=== PATIENT | female | born 1975 | race Hispanic/Latino ===

== ENCOUNTER 2017-08-22 03:37 | Emergency (ER) | payer BC | END 2017-08-22 04:04 | disposition home or self-care (01) | LOC: EDH 03:37 | DX: H65.01 Acute serous otitis media, right ear (principal); Z98.890 Other specified postprocedural states ==

== ENCOUNTER 2024-10-23 20:17 | Emergency (ER) | payer BC ==
[~2024-10-23] VITALS: Ht 162.6 cm; Wt 95.3 kg
[2024-10-23 21:03] LABS: BASOPHILS # (AUTO) 0.05 K/uL (0.00-0.20); BASOPHILS % (AUTO) 0.7 % (0.0-5.0); EOSINOPHILS # (AUTO) 0.18 K/uL (0.00-0.70); EOSINOPHILS % (AUTO) 2.6 % (0.0-8.0); HEMATOCRIT 39.4 % (36-48); IMMATURE GRANULOCYTE ABSOLUTE 0.02 K/uL (0-1); LYMPHOCYTES # (AUTO) 2.6 K/uL (1.0-4.8); LYMPHOCYTES % (AUTO) 37.5 % (21.0-51.0); MEAN CORPUSCULAR HEMOGLOBIN 24.6 pg (27.0-33.0); MEAN CORPUSCULAR HGB CONC 31.2 g/dL (32.0-36.0); MONOCYTES # (AUTO) 0.6 K/uL (0.1-1.0); MONOCYTES % (AUTO) 8.3 % (3.0-13.0); NEUTROPHILS # (AUTO) 3.5 K/uL (1.8-7.7); NEUTROPHILS % (AUTO) 50.6 % (40.0-77.0); PLATELET COUNT (AUTO) 120 K/uL (130-400); RED BLOOD CELL COUNT(AUTO) 4.99 MIL/uL (4.00-5.50); RED CELL DISTRIBUTION WIDTH 20.3 % (11.0-15.5)
[2024-10-23 21:11] LABS: CREATININE 0.9 mg/dL (0.5-1.0); POTASSIUM 3.7 mmol/L (3.5-5.1)
--- NOTE | 2024-10-23 21:24 | HMCIMG ---
CT HEAD/BRAIN W/O CONTRAST INDICATION: severe occipital headache/hypertensive urgency TECHNIQUE: CT HEAD/BRAIN W/O CONTRAST. CT was performed with one or more of the following dose reduction techniques: Automated exposure control, adjustment of the mA and/or kV according to the patient's size, or use of the iterative reconstruction technique. Comparison: None FINDINGS: The ventricles and extra ventricular CSF spaces are within normal limits. No mass effect, midline shift or herniation. No extra axial collection. No acute intracranial bleed. The visualized paranasal sinuses and mastoid air cells are normally aerated. IMPRESSION: No acute intracranial findings.
[2024-10-23 21:25] LABS: B-TYPE NATRIURETIC PEPTIDE 30 pg/mL (0-100)
--- NOTE | 2024-10-23 21:34 | HMCIMG ---
INDICATION: cp/htn TECHNIQUE: CHEST 1VW COMPARISON: None FINDINGS AND IMPRESSION: Prominent bilateral interstitial markings which may represent bronchitis or vascular congestion in the proper clinical setting. Borderline cardiomegaly Mild degenerative changes of the spine. The visualized upper abdomen appears unremarkable.
[2024-10-23 21:49] VITALS: BP 143/56; PULSE 55; RESP 16; TEMP 98.1; O2SAT 98
--- NOTE | 2024-10-23 21:49 | ERN ---
General Chief Complaint: Headache Stated Complaint: HYPERTENSION, HEADACHE Time Seen by MD: 20:21 Time Seen by Midlevel: 20:21 Source: patient History of Present Illness Initial Comments Patient is a 49-year-old female presenting to the emergency department for evaluation of an occipital headache. She proceeded to check her blood pressure and it was elevated at 170 systolic so she decided to report to the ER for further evaluation. She does report taking two 500 mg tablets earlier today with mild relief. Denies any vision changes, focal weakness, or any other symptoms at this time. Patient does not have a history of hypertension and has not taken any medication for it. Allergies: Coded Allergies: No Known Allergies (Unverified Allergy, Unknown, 10/23/24) Past Medical History Past Medical History: No Pertinent History Past Surgical History: None ROS Dictation CONSTITUTIONAL: Negative except for HPI HEAD/FACE: Negative except for HPI EENT: Negative except for HPI RESPIRATORY: Negative except for HPI GASTROINTESTINAL/ABDOMINAL: Negative except for HPI GENITOURINARY: Negative except for HPI MUSCULOSKELETAL: Negative except for HPI INTEGUMENTARY: Negative except for HPI NEUROLOGICAL/PSYCH: Negative except for HPI HEMATOLOGIC/LYMPHATIC: Negative except for HPI All Systems Negative, Except as noted above. 13 point review of systems assessed and all negative except for above. Physical Exam Physical Exam Dictation Vital Signs reviewed General Appearance: Alert, oriented x 3, no acute distress, well developed, nourished. Head and Face: non-traumatic. Eyes: PERRL, pink conjunctivas, eyelid no trauma, anterior chamber with arcus senilis. Ears: Pinnas intact and no signs of trauma or erythema ear canals clear and no discharge TM no erythema Nose: No discharge, no bleeding. Oropharynx: Mouth normal, tongue pink, pharynx clear,no erythema, tonsils no exudates, no abscesses noted, mucous membrane moist Neck: Supple, non-tender, no thyromegaly, no masses, no JVD, no bruits Breast:Deferred Chest:No tenderness, no crepitus, no paradoxical movement, no retractions Lungs:Clear, well-ventilated, symmetric, no rales, no wheezing, no rhonchi, no stridor, good breath sounds bilaterally Heart: Regular rate, regular rhythm, no murmur, no gallops Vascular: no peripheral edema, Abdomen: Soft, positive bowel sounds, nondistended, no guarding, nontender, no rebound, no masses no hepatomegaly, no splenomegaly, no Levy's sign, no hernias. Rectal: Deferred Genital: Deferred Neurological: Normal speech, motor function intact, sensory function intact Musculoskeletal: Neck nontender, full range of motion, back nontender, full range of motion, Extremities: nontender, full range of motion Skin: Color pink, dry, no turgor, no rash, no lacerations, no abrasions, no contusions. Lymphatic: Deferred Results Laboratory and Microbiology Lab and Micro Result Laboratory Tests Test 10/23/24 20:49 White Blood Count 7.0 K/uL (4.8-10.8) Red Blood Count 4.99 MIL/uL (4.00-5.50) Hemoglobin 12.3 g/dL (12.0-16.0) Hematocrit 39.4 % (36-48) Mean Corpuscular Volume 79.0 fL (79-99) Mean Corpuscular Hemoglobin 24.6 pg (27.0-33.0) L Mean Corpuscular Hemoglobin Concent 31.2 g/dL (32.0-36.0) L Red Cell Distribution Width 20.3 % (11.0-15.5) H Platelet Count 120 K/uL (130-400) L Mean Platelet Volume 10.3 fL (7.5-10.5) Immature Granulocyte % (Auto) 0.3 % (0-1) Neutrophils (%) (Auto) 50.6 % (40.0-77.0) Lymphocytes (%) (Auto) 37.5 % (21.0-51.0) Monocytes (%) (Auto) 8.3 % (3.0-13.0) Eosinophils (%) (Auto) 2.6 % (0.0-8.0) Basophils (%) (Auto) 0.7 % (0.0-5.0) Neutrophils # (Auto) 3.5 K/uL (1.8-7.7) Lymphocytes # (Auto) 2.6 K/uL (1.0-4.8) Monocytes # (Auto) 0.6 K/uL (0.1-1.0) Eosinophils # (Auto) 0.18 K/uL (0.00-0.70) Basophils # (Auto) 0.05 K/uL (0.00-0.20) Absolute Immature Granulocyte (auto 0.02 K/uL (0-1) Nucleated Red Blood Cells 0.0 % (0.0-0.19) Red Blood Cell Morphology See comments Sodium Level 141 mmol/L (136-145) Potassium Level 3.7 mmol/L (3.5-5.1) Chloride Level 105 mmol/L (101-111) Carbon Dioxide Level 31 mmol/L (21-32) Blood Urea Nitrogen 17 mg/dL (7-18) Creatinine 0.9 mg/dL (0.5-1.0) Glomerular Filtration Rate Calc 77 mL/min (>90) Random Glucose 122 mg/dL (70-105) H Total Calcium 9.4 mg/dL (8.5-10.1) Troponin I High Sensitivity 9 ng/L (4-50) B-Type Natriuretic Peptide 30 pg/mL (0-100) Labs Reviewed?: Yes MDM MDM: Patient is a 49-year-old female presenting to the emergency department for evaluation of an occipital headache. She proceeded to check her blood pressure and it was elevated at 170 systolic so she decided to report to the ER for further evaluation. She does report taking two 500 mg tablets earlier today with mild relief. Denies any vision changes, focal weakness, or any other symptoms at this time. Patient does not have a history of hypertension and has not taken any medication for it. On physical examination patient was in no acute distress. Neurological examination is unremarkable. Patient has a GCS of 15. Initial blood pressure is 180/76. Cardiac workup was initiated. Plan was to monitor blood pressure until administer clonidine as needed however during her ER stay her blood pressure improved to 160/61. Her CBC and chemistries unremarkable. Her cardiac enzymes are negative. Her EKG is normal. Her chest x-ray is normal. Her CT scan of the head is normal. Patient will be discharged home. She needs to follow up with her PCP so she could potentiallyStart blood pressure medication. Differential diagnosis: Hypertensive urgency, hypertensive emergency, electrolyte abnormality, intracranial bleed There are no social concerns with this patient. Prescription drug management Prescriptions will include: None Medical management and examination interpretation discussions were had by me with other qualified healthcare professionals as indicated for the patient's care. ED Course Orders Procedure Category Date Status Time 12 Lead Ekg Tracing- EKG 10/23/24 Logged Technical 20:39 Cbc With Differential LAB 4/14/25 Complete 20:39 Basic Metabolic Panel LAB 10/23/24 Complete 20:39 Troponin I High LAB 10/23/24 Complete Sensitivity 20:39 B-Type Natriuretic LAB 10/23/24 Complete Peptide 20:39 Chest 1vw RAD 10/23/24 Resulted 20:39 Ct Head/Brain W/O CT 10/23/24 Resulted Contrast 20:39 Vital Signs Date Time Temp Pulse Resp B/P (MAP) Pulse Ox O2 Delivery O2 Flow Rate FiO2 10/23/24 21:16 98.1 62 16 160/61 98 Room Air* 0 21 10/23/24 20:54 98.1 64 16 180/74 98 Room Air* 0 21 10/23/24 20:34 98.1 63 20 180/76 98 Room Air [place] [address] [address] IMAGING REPORT Signed PATIENT: BERNARDO ORTA MR#: [id number] : 1975 SEX: F AGE: 49 LOCATION: [facility] ORDER 39 STATUS: REG REPORT#: [id number] SERVICE 38 REASON: severe occipital headache/hypertensive urgency ORDERING PHYSICIAN: CATARINA ORTA PROCEDURE: HEAD WO - CT HEAD/BRAIN W/O CONTRAST CT HEAD/BRAIN W/O CONTRAST INDICATION: severe occipital headache/hypertensive urgency TECHNIQUE: CT HEAD/BRAIN W/O CONTRAST. CT was performed with one or more of the following dose reduction techniques: Automated exposure control, adjustment of the mA and/or kV according to the patient's size, or use of the iterative reconstruction technique. Comparison: None FINDINGS: The ventricles and extra ventricular CSF spaces are within normal limits. No mass effect, midline shift or herniation. No extra axial collection. No acute intracranial bleed. The visualized paranasal sinuses and mastoid air cells are normally aerated. IMPRESSION: No acute intracranial findings. DICTATED BY: JACK SHERMAN MD DATE: 10/23/242120 ELECTRONICALLY SIGNED BY: JACK SHERMAN MD DATE: 10/23/242123 [place] [address] [address] IMAGING REPORT Signed PATIENT: BERNARDO ORTA MR#: [id number] : 1975 SEX: F AGE: 49 LOCATION: [facility] ORDER 39 STATUS: REG [facility] REPORT#: [id number] SERVICE 38 REASON: cp/htn ORDERING PHYSICIAN: CATARINA ORTA PROCEDURE: CXR1VW - CHEST 1VW INDICATION: cp/htn TECHNIQUE: CHEST 1VW COMPARISON: None FINDINGS AND IMPRESSION: Prominent bilateral interstitial markings which may represent bronchitis or vascular congestion in the proper clinical setting. Borderline cardiomegaly Mild degenerative changes of the spine. The visualized upper abdomen appears unremarkable. DICTATED BY: JACK SHERMAN MD DATE: 10/23/242129 ELECTRONICALLY SIGNED BY: JACK SHERMAN MD DATE: 10/23/242133 HEART Score Response (Comments) Value History: Low suspicion (0) 0 EKG: Normal 0 Age: 45-65yrs (+1) 1 Risk Factors: No known risk factors (0) 0 Initial Troponin: Normal limit (0) 0 HEART Score Risk: Low Risk for MACE (1-3) Total 1 DX & DISP Disposition: Discharge Departure Impression: Primary Impression: Elevated blood pressure reading Condition: Stable Additional Instructions: Your blood work today is unremarkable. Your cardiac enzymes are negative. Your EKG is normal. Your CT scan of the head is normal. Your chest x-ray does not show any acute abnormalities. You will need to follow up with your primary care doctor outpatient. Continue to monitor your blood pressure over the next couple of days. Keep a log of your blood pressure readings. Your primary care doctor may need to start you on blood pressure medication. This will need to be done outpatient. Your last blood pressure while in the emergency department improved to 143/56 with a heart rate of 55 Referrals: SELF,REFERRAL (PCP) I have reviewed the case, and I agree with, Diagnosis and Plan I performed the substantive portion of the visit. I have reviewed and personally made and approve the management plan that is documented in the note by myself or the RYAN. I acknowledge for responsibility for the patient's management plan. CATARINA ORTA Oct 23, 2024 21:49
--- NOTE | 2024-10-24 06:32 | EKG ---
[facility] Test Date: 2024-10-23 Test Time: 20:47:37 Pat Name: BERNARDO ORTA Department: ED Room: Gender: F Sampler First: 0991 : 1975 Requested By: CATARINA ORTA Order Number: [id number] Reading MD: Timothy Johnson Measurements Intervals [place] Rate: 65 P: 23 DE: 146 QRS: 10 QRSD: 104 T: 53 QT: 424 QTc: 441 Interpretive Statements Sinus rhythm No previous ECG available for comparison Electronically Signed On 10-24-2024 11:20:07 CDT by Timothy Johnson Please click the below link to view image of tracing.
== END 2024-10-23 22:06 | disposition home or self-care (01) ==
LOC: EDH 20:17
DX: R03.0 Elevated blood-pressure reading, without diagnosis of hypertension (principal)
CPT/HCPCS: 36415; 70450; 71045; 80048; 83880; 84484; 85025; 93005; 99284